=== PATIENT | female | born 1995 | race American Indian/Alaskan Native ===

== ENCOUNTER 2018-10-11 19:11 | Emergency (ER) | payer MEDICAID ==
[2018-10-12 05:31] VITALS: BP 121/76; PULSE 85; RESP 20; TEMP 98.6; O2SAT 99
--- NOTE | 2018-10-12 07:54 | OBDCSUM ---
Datetime: 10/11/2018 20:18 Discharged to, Provider: Home Follow up at, Provider: [facility] Disch Instr Diet: Regular Discharge Diagnosis, Provider: False Labor - Undelivered Discharge Time: 10/11/2018 20:35 Follow up in weeks, Provider: in 1 Week Disch Referrals: None
--- NOTE | 2018-10-12 07:55 | OBHP ---
Datetime: 10/11/2018 19:30 IP Adm Impression: Term, intrauterine ; No Active Labor; Intact Membranes IP Admit Plan: Observation/Evaluation; Discharge home Admit Comment, IP Provider: 23 YO with IUP at 37.1 weeks EGA as per patient's reports of [facility] st trimester US, who presents to [facility] c/o mild upper abdominal pain. Patient reports she had an abdom inal trauma yesterday at 7:30 PM while swinging her son in the park she accidentally got hit in the a bdomen. Patient also reports lower back with some radiation to the right thigh down to the leg with o ccasional sensation of numbness in the external aspect of the thigh, she admits that she has had this back pain for several weeks is intermittently with periods of improvement and recurrences, it gets s ome relief with Tylenol. Patient denies VB, LOF, N/V, headache, dizziness, leg weakness, bowel incont inence, urinary incontinence, dysuria, fever, or other acute medical complaint at present. Patient en dorses +FM. Of note patient reports she went [facility] this afternoon with same complaint. Patient endorses she has not provider and attends [facility] EDOB for her needs. [facility] L_D [phone] contacted during triage, Final triage report from today's visit at [facility] obta ined: As per [facility] records Patient has no PNC and had been to triage multiple times. Patient is blood type B positive, GBS negative in September 2018. She is Betamethasone complete at 33 weeks GA. ROS: all other systems reviewed and negative unless noted in HPI OBGYN: LETICIA 10/28/18, patient does not remember LMP. G1 2016 at [facility], denies complications. Pat ient denies medical problems in this current . provider: None PMH: Asthma, last asthma attack at 5 YO FMH: Father with DM and HTN, patient states that she is adopted and does not know her mother's FMH Meds: Denies Surgical Hx: Appendectomy 2009 SOCHx: denies ETOH, smoking, drug use ALLERG: Peanuts, coconuts, pineapple Labs: Unable to obtain PE GEN: no acute distress, Vitals: WNL Abd: Gravid, BS present normal, soft, no tenderness to palpation. Back: symmetric, no tenderness to palpation of vertebrae, no CVA tenderness LE: No edema of LE. MSK Straight leg raise positive on right side, no sensorial deficit noted to L E. Motor strength 5/5 to LE Ext: No edema Pelvic exam performed by attending A/P: 23 YO with IUP at 37.1 weeks EGA as per patient's reports of first trimester US, who prese nts with abdominal discomfort after an abdominal trauma the previous day, and lower back with radiati on to the thigh and numbness of the upper external aspect of the thigh for several weeks. Impression: Abdominal muscular tenderness s/p mild abdominal trauma. Musculoskeletal back pain vs Sciatic Plan -Observation and eval L_D -Maternal VS monitoring: normal -FHR monitorins, reactive tracing. -DC home and f/u at [facility] within a week -ED labor precautions given -Tylenol 650 PO Q6h PRN pain Case discussed with attending Dr César Mancuso MD PGY1 OB Hospitalist on-call. Pt seen and examined with PGY1. Pt states that she is 37w acc to [facility] (co nfirmed by notes rec'd from [facility]). She has been in/out complaining of back pain/ealry labor today. Sh e states that she has been 4cm for weeks. [facility] documents that she rec'd steroids at 33w. She is seen there q week. She came here to [facility] because [facility] doesn's explain her back pain/right leg numbess. On PE, there are no gross neuromuscular deficiencies. She is obese, , and appears frustrate d being preg. She has a plan with [facility] to be checked every week until she delivers. Labor instructio ns given. She understood. If back pain persisits after delivery, advised for her to be evaluated by PMD (Dr Lozano) and follow up with [facility] where she had gone for her previous preg/antep artum care - MAHNDO Lungs - PN: Normal Heart - PN: Normal HEENT - PN: Normal General - PN: Normal Presentation-Admit: Vertex IP Fetus A Comments: Sonogram cephalic FHR - Baseline A Provider: 140 Membranes, Provider: Intact Comments, ACOG Physical Exam: see triage comment OBESE; IN NAD Pool Provider: Negative IP Hx Assessment: No Care Vital Signs Provider: Reviewed; Within Normal Limits IP Chief Complaint: Maternal discomfort NICHD Variability Prov Fetus A: Moderate 6-25bpm NICHD Accel Fetus A IP Provider: [id number] FHR Category Provider Fetus A: Category I NICHD Decel Fetus A IP Provider: None Dilatation, Provider: 1-2 Effacement, Provider: high
== END 2018-10-11 20:50 | disposition home or self-care (01) ==
LOC: H.EROB2 19:11
DX: O26.93 Pregnancy related conditions, unspecified, third trimester (principal); R10.2 Pelvic and perineal pain; M54.5 Low back pain; Z3A.37 37 weeks gestation of pregnancy